=== PATIENT | male | born 1980 | race Caucasian/White ===

== ENCOUNTER 2017-03-05 12:35 | Emergency (ER) | payer BC ==
[2017-03-05] MEDS ORDERED: Tetan/Diph/Pertus SYR(Tdap)* 0.5 ML SYR(BOOSTRIX) use SYR IM ONE (13:51)
--- NOTE | 2017-03-05 13:52 | UC ---
Laceration HPI - HPI Summary HPI Summary: wide u shaped lac on left thumb -laceration from a rashid a few hours ago - History Of Current Complaint Chief Complaint: UCUpperExtremity Stated Complaint: THUMB LAC Time Seen by Provider: 03/05/17 13:30 Hx Obtained From: Patient Laceration Location: Finger - left thumb Mechanism Of Injury: Sharp Trauma Onset/Duration: Sudden Onset, Lasting Hours - 2-3 Severity: Mild Pain Intensity: 3 Pain Scale Used: 0-10 Numeric Aggravating Factors: Nothing - Allergies/Home Medications Allergies/Adverse Reactions: Allergies Allergy/AdvReac Type Severity Reaction Status Date / Time No Known Allergies Allergy Verified 03/05/17 12:56 Home Medications: Home Medications NK [No Home Medications Reported] 03/05/17 [History Confirmed 03/05/17] PMH/Surg Hx/FS Hx/Imm Hx Previously Healthy: Yes - Surgical History Surgical History: None Surgery Procedure, Year, and Place: denies - Family History Known Family History: Positive: None - Social History Occupation: Employed Full-time Lives: With Family Alcohol Use: Weekly Substance Use Type: None Smoking Status (MU): Never Smoked Tobacco - Immunization History Most Recent Tetanus Shot: refused tetanus up date Review of Systems Constitutional: Negative Skin: Other - 1.5 cm wide u shaped laceration left thumb some numbness just above laceration Eyes: Negative ENT: Negative Respiratory: Negative Cardiovascular: Negative Gastrointestinal: Negative Genitourinary: Negative Motor: Negative Neurovascular: Negative Musculoskeletal: Negative Neurological: Negative Psychological: Negative Is Patient Immunocompromised?: No All Other Systems Reviewed And Are Negative: Yes Physical Exam Triage Information Reviewed: Yes Appearance: Well-Appearing, No Pain Distress, Well-Nourished Vital Signs: Initial Vital Signs Temp 98.3 F 03/05/17 12:57 Pulse 91 03/05/17 12:57 Resp 16 03/05/17 12:57 BP 125/85 03/05/17 12:57 Pulse Ox 100 03/05/17 12:57 Vital Signs Reviewed: Yes Eye Exam: Normal Eyes: Positive: Conjunctiva Clear ENT Exam: Normal ENT: Positive: Normal ENT inspection, Hearing grossly normal. Negative: Nasal drainage, Trismus, Muffled voice, Hoarse voice Dental Exam: Normal Neck exam: Normal Neck: Positive: Supple Respiratory Exam: Normal Respiratory: Positive: Chest non-tender, No respiratory distress, No accessory muscle use Cardiovascular Exam: Normal Cardiovascular: Positive: RRR, Pulses Normal, Brisk Capillary Refill Musculoskeletal Exam: Normal Musculoskeletal: Positive: Strength Intact, ROM Intact, No Edema Neurological Exam: Normal Neurological: Positive: Alert, Muscle Tone Normal Psychological Exam: Normal Skin Exam: Normal Laceration Repair - Laceration Repair 1 Description: Irregular Laceration Size After Repair: Length (cm) - 1.5 Modified For Repair: No Type Injection: Digital Anesthesia Used: 1.0% Lido - 4 cc total Cleansing Completed Via Routine Prep: Yes Irrigation With Pressure Irrigation Device: Yes Closure Material: Sutures Closure Method: Single Layer Suture Of: Skin Suture Type: Nylon - 5 number 5.0 Re-Evaluation - Re-Evaluation First Eval Change: Improved - well approximated, no bleeding, n/m/c intact Laceration Course/Dx - Course/Dx Course Of Treatment: gentle soap and water wash return for s/s of infestion return 12-14 days for suture removal - Differential Dx - Laceration/Wound Provider Diagnoses: Laceration repain left thumb Discharge - Discharge Plan Condition: Stable Disposition: HOME Patient Education Materials: Care For Your Stitches (ED), Finger Laceration (ED ) Referrals: Lala Fraire MD [Primary Care Provider] - Additional Instructions: return in 12-14 days for suture removal
[2017-03-05] MEDS ORDERED: Lidocaine 1% MPF* 2 ML VIAL INJ ONE (13:55)
[2017-03-05 15:07] VITALS: BP 125/86
== END 2017-03-05 15:09 | disposition home or self-care (01) ==
LOC: UCEAST 12:35
DX: S61.012A Laceration without foreign body of left thumb without damage to nail, initial encounter (principal); W27.8XXA Contact with other nonpowered hand tool, initial encounter; Y92.9 Unspecified place or not applicable
CPT/HCPCS: 12001; 90715; 99201; G0463